=== PATIENT | female | born 1940 | race Caucasian/White ===

== ENCOUNTER 2017-11-12 13:00 | Inpatient (IN) | payer MEDICARE, BC ==
--- NOTE | 2018-02-04 04:40 | HP ---
HISTORY AND PHYSICAL: DATE OF ADMISSION: 02/11/18 ATTENDING PROVIDER: Rachel Sanchez MD * (DICTATED BY LINCOLN FIORE) HISTORY OF PRESENT ILLNESS: Ms. Jaramillo is a 77-year-old female with right knee pain over several years. She reports 8 to 10/10 pain in the right knee joint. She has locking, clicking, and catching. She has snapping of the knee. She has difficulty ambulating more than a block without severe pain. She has failed intraarticular injections, antiinflammatories, pain medication, physical therapy, as well as an arthroscopy in 2014 at an outside facility with Dr. Saldana in [place]. She would like to proceed with a total knee arthroplasty of the right knee on 02/11/18. PAST MEDICAL HISTORY: 1. Hypothyroidism. 2. Osteoarthritis. 3. Cataract. PAST SURGICAL HISTORY: 1. Appendectomy. 2. Hysterectomy. 3. Prior meniscal tear with arthroscopy. 4. Cholecystectomy. 5. Bladder lifting. MEDICATIONS: 1. Levothyroxine 88 mcg. 2. Naproxen 220. 3. Turmeric. 4. Magnesium. 5. Glucosamine chondroitin. 6. Neomycin ointment. ALLERGIES: No known drug allergies. FAMILY HISTORY: cancer mother's side. Maternal, heart attack and hepatitis B. SOCIAL HISTORY: The patient is a retired hardin. She lives with her partner. No tobacco, alcohol, or recreational drug use. Very active. Normally an independent ambulator, right-hand dominant. REVIEW OF SYSTEMS: General: The patient denies any fevers, chills, or night sweats. No known anesthesia problems. HEENT: Denies any headache, lightheadedness, or syncopal episodes. Cardiothoracic: Denies any chest pain chest pain, heart palpitations, or edema. Pulmonary: Denies any shortness of breath with exertion, chronic cough, or COPD. GI: Denies any nausea, vomiting , diarrhea, or constipation. : Denies any nocturia, urinary frequency or urgency. MSK: Denies any chronic or intermittent back pain. No fractures. Neuro: Denies any paresthesias, numbness, seizures, or stroke. Integument: Denies any abrasions, lesions, rashes, lumps, or open sores. PHYSICAL EXAMINATION GENERAL: The patient is alert and oriented x3 with appropriate mood and affect , appropriate dress and hygiene. In no acute distress. HEENT: Normocephalic and atraumatic. Hearing and vision are grossly intact. PULMONARY: Lungs are clear to auscultation bilaterally with no wheezes, rales, or rhonchi. CARDIO: Regular, rate, and rhythm. Normal S1 and S2. No appreciable S3 or S4. No murmurs, rubs, or gallops. MSK: The right lower extremity. Inspection of the right lower extremity reveals no erythema or ecchymoses. Skin is warm, dry, and intact. There is no palpable masses or lymph nodes about the knee. Range of motion is 15 degrees shy of extension and 120 degrees of flexion. She has no varus or valgus instability but some slight MCL laxity. No pain with MCL stress testing. She has a negative German distally. No edema. Negative anterior and posterior drawer test. 5/5 ankle dorsiflexion and plantarflexion strength. Full sensation to light touch distally and a 2+ dorsalis pedis pulse. She has 15 degrees of valgus deformity at the knee. IMPRESSION: Right knee osteoarthritis. PLAN/RECOMMENDATIONS: Ms. Jaramillo is a 77-year-old female scheduled for upcoming right total knee arthroplasty on 02/11/18. Informed consent was obtained from the patient. She understands the risks, benefits, and complications of surgery. She wishes to proceed. She will follow up in 10 to 14 days after surgery for suture removal and recheck. LINCOLN FIORE [id number]/[facility] #: [id number] OPAL
[2018-02-10] MEDS ORDERED: Buffered Lidocaine 0.9% SYRIN* 5 ML/SYR SYRINGE INTRADERM ONE (12:18)
[2018-02-11] MEDS ORDERED: Sodium Citrate/Citric Acid* 15 ML UDC PO ONE (06:00)
[2018-02-11] MEDS ORDERED: ceFAZolin 2 GM PREMIX (*) 2 GM/50 ML BAG IVPB ONE (08:50)
[2018-02-11] MEDS ORDERED: Buffered Lidocaine 0.9% SYRIN* 5 ML/SYR SYRINGE ONE (08:50)
[2018-02-11] MEDS ORDERED: Sodium Citrate/Citric Acid* 15 ML UDC ONE (08:50)
[2018-02-11] MEDS ORDERED: Bupivacaine 0.25% SDV* 30 ML ONE ×2 (10:17→10:50)
[2018-02-11] MEDS ORDERED: fentaNYL* 50 MCG/ML 2 ML VIAL (100 MCG VIAL) ONE (10:20)
[2018-02-11] MEDS ORDERED: Midazolam* 1 MG/ML 2 ML VIAL (2 MG) ONE (10:20)
[2018-02-11] MEDS ORDERED: fentaNYL* 50 MCG/ML 2 ML VIAL (100 MCG VIAL) IV PRN (10:49)
[2018-02-11] MEDS ORDERED: Naloxone* 0.4 MG/ML 1 ML VIAL IV PRN (10:49)
[2018-02-11] MEDS ORDERED: Ondansetron ODT TAB* 4 MG PO PRN (10:49)
[2018-02-11] MEDS ORDERED: Propofol* 10 MG/ML 20 ML BTL IV PUSH ONE (11:23)
[2018-02-11] MEDS ORDERED: Lidocaine 2% PF * 5 ML VIAL ONE (11:29)
[2018-02-11] MEDS ORDERED: Magnesium Hydroxide LIQ* 30 ML UDC PO PRN (13:35)
[2018-02-11] MEDS ORDERED: Bisacodyl SUPP* 10 MG SUPP PR PRN (13:35)
[2018-02-11] MEDS ORDERED: Polyethylene Glycol 3350* 17 GM PACKET PO PRN (13:35)
[2018-02-11] MEDS ORDERED: Ondansetron TAB* 4 MG PO PRN (13:35)
[2018-02-11] MEDS ORDERED: diPHENhydraMINE IV* 50 MG/ML 1 ml VIAL (BENADRYL) IV PRN (13:35)
[2018-02-11] MEDS ORDERED: Ondansetron 40 MG VIAL* 2 MG/ML 20 ML VIAL IV PRN (13:35)
--- NOTE | 2018-02-11 14:51 | RAD ---
INDICATION: The patient is status post right total knee arthroplasty COMPARISON: Preoperative knee radiograph dated September 23, 2017 TECHNIQUE: 2 view radiograph of the right knee. FINDINGS: The right knee prosthesis is anatomically aligned in the AP and lateral projections. A surgical drain is noted. IMPRESSION: Anatomic alignment of recently installed right knee prosthesis.
[2018-02-11] MEDS: oxyCODONE/Acetamin 5/325 MG* TAB PO PRN ×2 (16:12→20:17)
[2018-02-11] MEDS ORDERED: Warfarin TAB(*) 6 MG PO ONE (17:00)
[2018-02-11] MEDS: oxyCODONE TAB* 5 MG TAB PO PRN ×2 (18:16→22:15)
[2018-02-11] MEDS: Morphine VIAL* 4 MG/ML VIAL (1 ml vial) IV PRN ×3 (19:15→23:19)
[2018-02-11] MEDS: Cyclobenzaprine TAB* 10 MG PO PRN (19:17)
[2018-02-11] MEDS: Docusate CAP* 100 MG PO SCH (19:33)
[2018-02-11] MEDS: Magnesium Hydroxide LIQ* 30 ML UDC PO SCH (19:33)
[2018-02-11] MEDS: Clindamycin 600 MG IVPREMIX(* 600 MG/50 ML SDV IV SCH (19:35)
[2018-02-12] MEDS: oxyCODONE/Acetamin 5/325 MG* TAB PO PRN ×3 (00:15→10:57)
[2018-02-12] MEDS: Morphine VIAL* 4 MG/ML VIAL (1 ml vial) IV PRN (02:02)
[2018-02-12] MEDS: oxyCODONE TAB* 5 MG TAB PO PRN (02:12)
[2018-02-12] MEDS: Clindamycin 600 MG IVPREMIX(* 600 MG/50 ML SDV IV SCH ×2 (03:24→11:35)
[2018-02-12 06:09] LABS: Hematocrit 35 % (35-47); Hemoglobin 12.1 g/dl (12.0-16.0); Mean Platelet Volume 9.3 um3 (7.4-10.4); Platelet Count 200 10^3/ul (150-450)
[2018-02-12 06:29] LABS: INR 1.17 (0.77-1.02)
[2018-02-12] MEDS: Levothyroxine TAB* 88 MCG TAB PO SCH (06:30)
[2018-02-12 06:32] LABS: EGFR Non-African American 75.1 (>60)
--- NOTE | 2018-02-12 08:10 | PN ---
Progress Note - Progress Note Date of Service: 02/12/18 SOAP: Subjective: 77 y/o female s/p R TKA by Dr Sanchez 02/11/2018. Patient with pain, pain medication working, however frustrated by pain level. Worked with PT this AM. VSS, afebrile overnight. Objective: General- Well appearing, NAD, AO Sitting in chair comfortably MSK- RLE- DF/PF = b/l, PT 2+, negative homans sign, surgical dressing intact, no drainage/ erythema/ induration noted. SITLT Vital Signs Temp 97.8 F 02/12/18 11:52 Pulse 61 02/12/18 11:52 Resp 18 02/12/18 11:52 BP 123/57 02/12/18 11:52 Pulse Ox 98 02/12/18 11:52 Intake & Output 02/11/18 02/12/18 02/12/18 18:59 06:59 18:59 Intake Total 1610 1287 571 Output Total 650 725 300 Balance 960 562 271 Weight 68.492 kg Intake: IV Fluids 1500 937 451 ABX - CLINDAMYCIN 50 LR 1500 937 401 IVPB 50 ABX - CLINDAMYCIN 50 Oral 110 300 120 Output: Srinivasan 550 725 Emesis 300 Estimated Blood Loss 100 Assessment: Stable 77 y/o female s/p R TKA by Dr Sanchez 02/11/2018. Plan: - DVT prophylaxis- lovenox, coumadin - Continue PT/ OT - Follow up with Dr. Sanchez within 10-14 days - H&H - Stable - post-op IV ABX- running. - Consult for PMRU placed Acetaminophen (Tylenol Tab*) 650 mg PO Q4H PRN PRN Reason: PAIN OR TEMPERATURE Bisacodyl (Dulcolax Supp*) 10 mg UT DAILY PRN PRN Reason: constipation Cyclobenzaprine HCl (Flexeril Tab*) 10 mg PO TID PRN PRN Reason: SPASMS Last Admin: 02/11/18 19:17 Dose: 10 mg Diphenhydramine HCl (Benadryl Iv*) 12.5 mg IV Q6H PRN PRN Reason: PRURITIS Docusate Sodium (Colace Cap*) 100 mg PO BID KENNEY Last Admin: 02/12/18 08:20 Dose: 100 mg Enoxaparin Sodium (Lovenox(*)) 30 mg SUBCUT Q24H [facility] Last Admin: 02/12/18 11:35 Dose: 30 mg Lactated Ringer's (Lactated Ringers 1000 Ml Bag*) 1,000 mls @ 100 mls/hr IV PER RATE [facility] Last Admin: 02/12/18 08:35 Dose: 100 mls/hr Lactulose (Lactulose*) 30 ml PO Q6H PRN PRN Reason: constipation Levothyroxine Sodium (Synthroid Tab*) 88 mcg PO 0600 [facility] Last Admin: 02/12/18 06:30 Dose: 88 mcg Magnesium Hydroxide (Milk Of Magnesia Liq*) 30 ml PO BID [facility] Last Admin: 02/12/18 08:20 Dose: 30 ml Magnesium Hydroxide (Milk Of Magnesia Liq*) 30 ml PO Q6H PRN PRN Reason: constipation Morphine Sulfate (Morphine Vial*) 2 mg IV Q2H PRN PRN Reason: PAIN Last Admin: 02/12/18 02:02 Dose: 2 mg Ondansetron HCl (Zofran 40 Mg Vial*) 4 mg IV Q6H PRN PRN Reason: nausea Last Admin: 02/12/18 09:44 Dose: 4 mg Ondansetron HCl (Zofran Tab*) 4 mg PO Q6H PRN PRN Reason: NAUSEA Last Admin: 02/11/18 18:25 Dose: 4 mg Oxycodone HCl (Roxycodone Tab*) 10 mg PO Q4H PRN PRN Reason: SEVERE PAIN Last Admin: 02/12/18 02:12 Dose: 10 mg Oxycodone/Acetaminophen (Percocet 5/325 Tab*) 2 tab PO Q4H PRN PRN Reason: PAIN Last Admin: 02/12/18 10:57 Dose: 2 tab Oxycodone/Acetaminophen (Percocet 5/325 Tab*) 1 tab PO Q4H PRN PRN Reason: PAIN Pharmacy Profile Note (Coumadin Daily Reminder*) 0 note FOLLOW UP 1700 [facility] Pharmacy Profile Note (Scopolamine Patch Remove*) 1 note PATCH OFF .AFTER 72 HOURS [facility] Polyethylene Glycol/Electrolytes (Miralax*) 17 gm PO DAILY PRN PRN Reason: Constipation Scopolamine (Transderm-Scop 1.5 Mg Patch*) 1 patch TRANSDERM Q72H [facility] Last Admin: 02/12/18 11:08 Dose: 1 patch Warfarin Sodium (Coumadin Tab(*)) 6 mg PO ONCE@1700 ONE PRN Reason: Protocol Stop: 02/12/18 17:01
[2018-02-12] MEDS: Docusate CAP* 100 MG PO SCH ×2 (08:20→19:33)
[2018-02-12] MEDS: Magnesium Hydroxide LIQ* 30 ML UDC PO SCH ×2 (08:20→19:33)
[2018-02-12] MEDS ORDERED: Scopolamine PATCH Remove* 1 NOTE MISC PATCH OFF SCH (11:00)
[2018-02-12] MEDS: Scopolamine 1.5 mg* PATCH TRANSDERM SCH (11:08)
[2018-02-12] MEDS ORDERED: Enoxaparin(*) 30 MG/0.3 ML SYR SUBCUT SCH (12:00)
[2018-02-12] MEDS: Acetaminophen TAB* 325 MG PO PRN ×2 (15:54→20:08)
[2018-02-12] MEDS ORDERED: Warfarin TAB(*) 6 MG PO ONE (17:00)
[2018-02-12] MEDS: Cyclobenzaprine TAB* 10 MG PO PRN (19:33)
[2018-02-12] MEDS: traMADol TAB* 50 MG PO PRN (20:54)
--- NOTE | 2018-02-12 22:17 | OP ---
OPERATIVE NOTE: DATE OF OPERATION: 02/11/18 DATE OF : 42 ATTENDING SURGEON: Rachel Sanchez MD USABILITY ENGINEER: LINCOLN Muñoz Ms. did help throughout the procedure with preparation of the leg, wound retraction, manipul ation of the knee and wound closure. ANESTHESIOLOGIST: Dr. Bird. ANESTHESIA: Spinal. PRE-OP DIAGNOSIS: Severe end-stage degenerative osteoarthritis of the right knee joint with valgus d eformity. POST-OP DIAGNOSIS: Severe end-stage degenerative osteoarthritis of the right knee joint with valgus deformity. OPERATIVE PROCEDURE: Right total knee arthroplasty. TOURNIQUET TIME: 45 minutes. COMPLICATIONS: None. ESTIMATED BLOOD LOSS: 300 cc. SPECIMEN: Bone and cartilage from the right knee joint sent to pathology. HARDWARE USED: This is cemented Sanders [employer] Nephew total knee arthroplasty hardware. For the femur, a right size 4 narrow Legion femoral component. For the tibia, a size 3 tibial base plate Francine II. For the insert, a 9-mm constrained articular insert size 3-4 and for the patella a 29-mm 3-peg all p letitia patella with 7.5 thickness. BRIEF HISTORY/INDICATIONS: Ms. Jaramillo is a 77-year-old female with years of increasingly severe ri ght knee pain and deformity. She developed significant valgus deformity as well as flexion contractu re. She has difficulty with activities of daily living and decreased quality of life. Conservative treatment failed to relieve her pain. The radiographs showed [id number] arthritis. Due to continu ed pain and decreased quality of life, the patient elected to undergo right total knee arthroplasty. Informed consent was obtained from the patient. She understood the risks of surgery included but we re not limited to bleeding, infection, damage to nearby structures, continued pain, need for further surgery, intraoperative fracture, nerve palsy, hardware failure or loosening, knee stiffness, loss of motion, stroke, heart attack, blood clot and . She wished to proceed. INTRAOPERATIVE FINDINGS: Intraoperatively, the patient was noted to have preop valgus deformity of 1 5 degrees with a flexion contracture of 20 degrees and significant hamstring tightness. She had comp lete thickness loss of cartilage in the lateral and patellofemoral compartment. The patient was foun d intraoperatively to have MCL incompetence with significant laxities. DESCRIPTION OF PROCEDURE: Ms. Jaramillo was identified in the preanesthesia unit. Her right lower ext remity was marked as the correct operative site. Informed consent was signed and placed in the chart . The patient was taken to the operating room and placed under spinal anesthesia. A Srinivasan catheter was placed. A tourniquet was placed on the right thigh. Right lower extremity was prepped and drape d in the usual sterile fashion. Preop time-out was made to correctly identify the patient, side, and site. Appropriate perioperative antibiotics were given within 1 hour of incision. Tourniquet was inflated and total tourniquet time for this procedure was 45 minutes. A 12-cm midline incision was made with a 10-blade and carried down to the extensor mechanism. A new 10-blade was us ed to make a standard medial parapatellar arthrotomy. Patella was subluxed laterally. Electrocauter y was used to subperiosteally elevate the soft tissue off the superomedial tibia to the mid sagittal plane. The patient's knee was flexed up. Anterior horn of the lateral meniscus and ACL were sharply released. A drill was used to enter the distal femur. Intramedullary distal femoral cutting guide was pinned on the distal femur. External rotation guide was pinned on the distal femur. The distal f emur was sized to a size 4. Size 4 multi-cutting jig was pinned on the distal femur. Oscillating sa w was used to make the appropriate 4 chamfer cuts. The PCL was completely released and the tibia was subluxed anteriorly. Extramedullary tibial cutting guide was pinned on the proximal tibia. 9 mm of proximal tibial bone w as cut with an oscillating saw perpendicular to the mechanical axis of the tibia. The bone was caref ully removed. The knee was brought out into full extension and a spacer block had good fit. It was noted that the hamstring was extremely contracted. Although the knee could be brought out to full ex tension, there was significant . Posterior capsule was released as much as possible but hamstr ing tightness remained significant. Medial and lateral ligaments were well balanced. Valgus alignme nt was much improved to anatomic 5 degrees. The flexion and extension gaps were well balanced. The knee was flexed up. The lamina complaints coordinator was placed both medially and laterally. Any remaining menis cus was carefully removed using electrocautery. Curved osteotome was used to remove any posterior os teophytes. Tibial tray and drop irasema were placed to once again confirm a satisfactory tibial cut. Th is was confirmed. A size 4 right narrow right femoral trial was impacted onto the distal femur and had excellent fit. The box for the posterior stabilized implant was prepared using a reamer and box cut osteotome. Size 3 tibial tray trial with a 9-mm insert trial was placed and was taken through range of motion. The knee had full extension to 130 degrees of flexion with satisfactory patellofemoral tracking. The pat magi was everted. The 7 mm of patellar bone and cartilage was carefully removed using an oscillating saw. Patella was sized to a size 29. Peg holes were drilled through the size 29 guide. The 29 tri al patella with 7.5 thickness was placed and the knee was taken through range of motion. There was s atisfactory patellofemoral tracking. All trials were carefully removed. The tibia was subluxed anteriorly and sized to a size 3. The pro ximal tibia was prepared using a size 3 keel punch. All bony cut surfaces were copiously irrigated w ith sterile saline and dried. Final implants were cemented into place, starting with the tibia, foll owed by the femur and last the patella. A 9-mm insert trial was placed and the knee was brought out into full extension. Tourniquet was turned down at 45 minutes. Electrocautery was used to obtain me ticulous hemostasis. The knee was copiously irrigated with sterile saline. Once the cement had full y cured, the insert trial was removed. Any excess cement was removed from around the hardware and ca psule. Final insert chosen was a 9-mm constrained articular insert size 3-4. This was locked into p osition on the tibial tray. The insert stability was checked and rechecked and noted to be stable. The knee was once again copiously irrigated with sterile saline. The extensor mechanism was closed u sing interrupted #1 Vicryl over a medium Hemovac drain. The rest of the incision was closed in a lay ered fashion using 0 and 2-0 Vicryl. Skin was closed using 3-0 nylon suture. Sterile Xeroform, 4x4' s and Webril were used to cover the incision. Braden wrap and cold pack were placed over this. The pat ient's anesthesia was reversed without difficulty. She was taken to the PACU in stable condition. I ntended weightbearing will be weightbearing as tolerated. Intended DVT prophylaxis will be Coumadin with a Lovenox bridge. [id number]/[facility] #: [id number]
[2018-02-13] MEDS: Acetaminophen TAB* 325 MG PO PRN ×5 (00:10→20:31)
[2018-02-13] MEDS: traMADol TAB* 50 MG PO PRN ×3 (03:01→16:21)
[2018-02-13 05:28] LABS: Hematocrit 35 % (35-47); Hemoglobin 12.2 g/dl (12.0-16.0); Mean Platelet Volume 9.5 um3 (7.4-10.4); Platelet Count 193 10^3/ul (150-450)
[2018-02-13 05:35] LABS: INR 2.39 (0.77-1.02)
[2018-02-13] MEDS: Levothyroxine TAB* 88 MCG TAB PO SCH (05:40)
[2018-02-13] MEDS: Cyclobenzaprine TAB* 10 MG PO PRN ×2 (05:40→14:34)
--- NOTE | 2018-02-13 07:45 | PN ---
Progress Note - Progress Note Date of Service: 02/13/18 SOAP: Subjective: Pt. is alert, reports severe pain r knee. Objective: RLE - dressing changed, inc c/d/i. distally nvi. Vital Signs: Temp Pulse Resp BP Pulse Ox 97.8 F 84 16 113/82 95 02/13/18 03:50 02/13/18 03:50 02/13/18 05:40 02/13/18 03:50 02/13/18 03:50 Laboratory Results - last 24 hr 02/13/18 02/13/18 05:08 05:08 Hgb 12.2 Hct 35 Plt Count 193 MPV 9.5 INR (Anticoag Therapy) 2.39 H Assessment: 77 yo F pod 2 s/p RTKA Plan: wbat rle pt/ot d/c lovenox, hold coumadin prn analgesia d/c plan - snf today or tomorrow
[2018-02-13] MEDS: Docusate CAP* 100 MG PO SCH ×2 (08:11→20:24)
[2018-02-13] MEDS: Magnesium Hydroxide LIQ* 30 ML UDC PO SCH ×2 (08:11→20:24)
[2018-02-14] MEDS: Cyclobenzaprine TAB* 10 MG PO PRN ×2 (00:34→09:00)
[2018-02-14] MEDS: traMADol TAB* 50 MG PO PRN ×3 (00:35→23:47)
[2018-02-14] MEDS: Acetaminophen TAB* 325 MG PO PRN ×5 (04:23→21:43)
[2018-02-14 06:01] LABS: Hematocrit 35 % (35-47); Mean Platelet Volume 9.8 um3 (7.4-10.4); Platelet Count 201 10^3/ul (150-450)
[2018-02-14 06:06] LABS: INR 2.37 (0.77-1.02)
[2018-02-14] MEDS: Levothyroxine TAB* 88 MCG TAB PO SCH (06:35)
[2018-02-14] MEDS: Docusate CAP* 100 MG PO SCH ×2 (08:55→19:25)
[2018-02-14] MEDS: Magnesium Hydroxide LIQ* 30 ML UDC PO SCH ×2 (08:55→19:25)
--- NOTE | 2018-02-14 12:05 | PN ---
Progress Note - Progress Note Date of Service: 02/14/18 SOAP: Subjective: POD #3 Right TKA, doing better. States that pain is well controlled, able to ambulate better with PT. Denies CP/SOB, calf pain Objective: Vitals: Temp Pulse Resp BP Pulse Ox 97.6 F 85 16 117/58 95 02/14/18 11:21 02/14/18 11:21 02/14/18 11:28 02/14/18 11:21 02/14/18 11:21 Gen: A&Ox3, NAD at rest laying in bed RLE: Dressing C/D/I. Thigh and calf soft, NT. +f/e at ankle and MTPs. N/V intact Labs: Laboratory Results - last 24 hr 02/14/18 02/14/18 05:30 05:30 Hgb 12.0 Hct 35 Plt Count 201 MPV 9.8 INR (Anticoag Therapy) 2.37 H Assessment: POD #3 Right TKA Plan: PMRU consult vs SNF for sub-acute rehab Cont PT/OT Hold Coumadin - INR 2.37
[2018-02-15] MEDS: Acetaminophen TAB* 325 MG PO PRN ×3 (03:12→13:55)
[2018-02-15] MEDS: oxyCODONE TAB* 5 MG TAB PO PRN ×2 (03:32→15:15)
[2018-02-15] MEDS: Levothyroxine TAB* 88 MCG TAB PO SCH (05:40)
[2018-02-15] MEDS: traMADol TAB* 50 MG PO PRN ×3 (05:40→22:52)
[2018-02-15 05:45] LABS: Hematocrit 34 % (35-47); Hemoglobin 11.6 g/dl (12.0-16.0); Mean Platelet Volume 8.9 um3 (7.4-10.4); Platelet Count 262 10^3/ul (150-450)
[2018-02-15 06:07] LABS: INR 1.54 (0.77-1.02)
[2018-02-15] MEDS: Docusate CAP* 100 MG PO SCH ×2 (07:57→19:41)
[2018-02-15] MEDS: Magnesium Hydroxide LIQ* 30 ML UDC PO SCH ×2 (07:58→19:41)
--- NOTE | 2018-02-15 11:20 | PN ---
Progress Note - Progress Note Date of Service: 02/15/18 SOAP: Subjective: POD #4 Right TKA. Doing better. Thinks that she may be able to manage better at home now that pain is under control. Denies CP, SOB or calf pain. Objective: Vitals: Temp Pulse Resp BP Pulse Ox 97.8 F 69 16 132/65 98 02/15/18 07:38 02/15/18 07:38 02/15/18 08:00 02/15/18 07:38 02/15/18 08:00 Gen: A&Ox3, NAD at rest sitting in chair RLE: Dressing C/D/I, +f/e at ankle and MTPs, N/V intact Labs: Laboratory Results - last 24 hr 02/15/02/15/18 05:38 05:38 Hgb 11.6 L Hct 34 L Plt Count 262 MPV 8.9 INR (Anticoag Therapy) 1.54 H Assessment: POD #4 Right TKA Plan: Cont PT/OT D/C neighborhood planner to discuss home care vs [facility] with pt - possible d/c home tonight or tomorrow if pt agreeable Coumadin 4 mg tonight, INR 1.54
[2018-02-15] MEDS: Scopolamine 1.5 mg* PATCH TRANSDERM SCH (11:30)
[2018-02-15] MEDS: Cyclobenzaprine TAB* 10 MG PO PRN (13:56)
[2018-02-15] MEDS ORDERED: Warfarin TAB(*) 4 MG PO ONE (17:00)
[2018-02-15] MEDS: oxyCODONE/Acetamin 5/325 MG* TAB PO PRN (19:41)
[2018-02-16] MEDS: oxyCODONE/Acetamin 5/325 MG* TAB PO PRN (00:03)
[2018-02-16] MEDS: traMADol TAB* 50 MG PO PRN (05:32)
[2018-02-16] MEDS: Acetaminophen TAB* 325 MG PO PRN (05:32)
[2018-02-16] MEDS: Levothyroxine TAB* 88 MCG TAB PO SCH (05:32)
[2018-02-16 08:26] LABS: Hematocrit 40 % (35-47); Hemoglobin 13.3 g/dl (12.0-16.0); Mean Platelet Volume 8.7 um3 (7.4-10.4); Platelet Count 409 10^3/ul (150-450)
[2018-02-16] MEDS: Magnesium Hydroxide LIQ* 30 ML UDC PO SCH (08:29)
[2018-02-16 08:30] VITALS: BP 133/77
[2018-02-16] MEDS: Docusate CAP* 100 MG PO SCH (08:43)
[2018-02-16] MEDS: Cyclobenzaprine TAB* 10 MG PO PRN (08:43)
[2018-02-16] MEDS: oxyCODONE TAB* 5 MG TAB PO PRN (08:43)
[2018-02-16 08:52] LABS: INR 1.34 (0.77-1.02)
--- NOTE | 2018-02-16 09:49 | PN ---
Progress Note - Progress Note Date of Service: 02/16/18 SOAP: Subjective: POD #5 Right TKA. Doing well. Pain is under control. Pt states she feels ready to go home today. No complaints. Denies any SOB, chest pain. Objective: Vitals: Vital Signs Temp 97.8 F 02/16/18 07:10 Pulse 73 02/16/18 07:10 Resp 16 02/16/18 08:44 BP 133/77 02/16/18 07:10 Pulse Ox 98 02/16/18 08:30 Intake & Output 02/15/18 02/16/18 02/16/18 18:59 06:59 18:59 Intake Total 810 800 Output Total 400 800 100 Balance 410 0 -100 Intake: Oral 810 800 Output: Urine 400 800 100 Other: # Bowel Movements 0 Estimated Stool Amount Small Gen: A&Ox3, NAD at rest sitting in chair RLE: Dressing C/D/I, +f/e at ankle and MTPs, N/V intact Assessment: POD #5 Right TKA Plan: D/C home today Cont PT/OT INR 1.34, Dose is 6mg tonight, 6mg on thu night Follow up in office
--- NOTE | 2018-02-17 08:15 | DS ---
AMENDED REPORT NOW INCLUDES COSIGNER DESIGNATION - ESIGNED BEFORE ADJUSTMENT DISCHARGE SUMMARY: DATE OF ADMISSION: 02/11/18 DATE OF DISCHARGE: 02/16/18 PROVIDER: Dr. Rachel Sanchez.* (DICTATED BY LINCOLN FIORE) ADMITTING DIAGNOSIS: Right knee osteoarthritis. CONSULTATIONS: PT and OT. HISTORY OF PRESENT ILLNESS: Ms. Jaramillo is a 77-year-old female, who had right knee pain over several years. She reported 8-10/10 pain in the right knee joint. She was experiencing locking, clicking, and catching. She did have snapping of the knee. She had difficulty ambulating more than a block without severe pain. She had failed intraarticular injections, antiinflammatories, pain medication, physical therapy, as well as arthroscopy in 2014 at an outside facility with Dr. Saldana in [place]. She proceeded with a right total knee arthroplasty on 02/11/18. HOSPITAL COURSE: The patient was admitted to [facility] on 02/11/18 and underwent a right total knee arthroplasty with no complications. The patient recovered briefly in the postanesthesia care unit and was then transferred to the short-stay surgical unit in stable condition. On postop day #1, the patient's H and H was 12.1 and 35. INR was 1.17 after 6 mg of Coumadin the night before. The dressing was clean, dry, and intact, and the right lower extremity was neurovascularly intact. She could demonstrate dorsiflexion and plantar flexion with good strength. The patient was able to get out of bed with physical therapy. Pain was well controlled with oxycodone 5 mg. On postop day #2, the urinary catheter was discontinued and the patient was able to void without difficulty. Incision was found to be benign with minimal drainage, no erythema or warmth. The patient's H and H on that day was 12.2 and 35 with an INR of 2.39 after 6 mg of Coumadin the night before. The pain was well controlled on postop day #2 and the patient was able to ambulate with a use of a rolling walker. On postop day #3, the patient's H and H was 12.0 and 35 with an INR of 2.37 after 0 mg of Coumadin the night before. Pain was again controlled with oxycodone 5 mg. The patient had been using cyclobenzaprine for some spasms. On postop day #4, the patient's H and H was 11.6 and 34 with an INR of 1.54 after 0 mg of Coumadin the night before. Pain again well controlled with oxycodone 5 mg and spasms controlled with Flexeril. On postop day #5, the patient's H and H was 13.3 and 40 and the INR was 1.34 after 4 mg of Coumadin the night before. The patient's pain was well controlled and found to be stable for discharge. Throughout the hospital course, vital signs remained stable and the patient was afebrile. DISCHARGE CONDITION: Good. DISCHARGE MEDICATIONS: New medications: 1. Warfarin sodium 2 mg. 2. Oxycodone 5 mg. 3. Cyclobenzaprine 5 mg. Home medications: 1. Levothyroxine 88 mcg. 2. Naproxen 220. 3. Turmeric. 4. Magnesium. 5. Glucosamine and chondroitin. 6. Neomycin ointment. DISCHARGE INSTRUCTIONS: Weight bearing as tolerated. Wound care: Okay to shower on postop day #3, no bathing/swimming/submerging the wound. Use gentle soap and pat dry. Cover with gauze, Braden wrap or tape. Call the orthopedic office for increased drainage, redness, increased pain or fever. Go to the ER with shortness of breath or chest pain. Diet: Regular diet. Increase fluids and fiber to prevent constipation. Continue with stool softeners. Call the office if no bowel motion within 48 hours. Continue physical therapy and occupational therapy exercises as shown. Visiting home nurses will do wound checks. Visiting home nurses will draw blood for blood work and INR on Thursday and . Coumadin dosing: Please note that you have been given 2 mg tablets. Please aron the dosing instructions on your calendar as they are provided to you. Dosin mg of Coumadin tonight, 6 mg of Coumadin on Thursday night. Pain control with oxycodone 5 one to two tabs by mouth every 4 to 6 hours as needed for pain. Maximum of 10 tabs per day. Flexeril 5 mg 1 to 2 tabs by mouth every 8 hours as needed for spasms. Antibiotics required prior to any dental work. Follow up with Dr. Rachel Sanchez in 10 to 14 days. Call for an appointment. LINCOLN FIORE [id number]/[facility] #: [id number] [facility]ITAL[facility]
== END 2018-02-16 10:45 | disposition home health service (06) | DRG 470 ==
LOC: AA 02-11 08:33 → SSU 02-11 15:49
PROVIDERS: ADMIT Orthopaedic Surgery Adult Reconstructive Orthopaedic Surgery; ATTEND Orthopaedic Surgery Adult Reconstructive Orthopaedic Surgery
PROC: 0SRC0J9 Replacement of Right Knee Joint with Synthetic Substitute, Cemented, Open Approach (ICD-10-PCS; principal; 2018-02-11 11:00)
DX: M17.11 Unilateral primary osteoarthritis, right knee (principal); I10 Essential (primary) hypertension; M21.061 Valgus deformity, not elsewhere classified, right knee; M24.561 Contracture, right knee; R25.2 Cramp and spasm; M25.761 Osteophyte, right knee; M22.41 Chondromalacia patellae, right knee; F32.9 Major depressive disorder, single episode, unspecified; R32 Unspecified urinary incontinence; E03.9 Hypothyroidism, unspecified; H26.9 Unspecified cataract; Z90.710 Acquired absence of both cervix and uterus; Z90.49 Acquired absence of other specified parts of digestive tract; Z80.9 Family history of malignant neoplasm, unspecified; Z83.1 Family history of other infectious and parasitic diseases; Z82.49 Family history of ischemic heart disease and other diseases of the circulatory system; Z87.891 Personal history of nicotine dependence; Z79.01 Long term (current) use of anticoagulants
CPT/HCPCS: 36415; 80048; 85014; 85018; 85049; 85610; 88305; 88311; A9270-GY; C1776; G8978-GP-CL; G8979-GP-CI; G8987-GO-CK; G8988-GO-CI; J0690; J1650; J2250; J2270; J2405; J2704; J3010